=== PATIENT | female | born 2000 | race Caucasian/White ===

== ENCOUNTER 2019-07-29 12:17 | Emergency (ER) | payer BC ==
[~2019-07-29] VITALS: Ht 172.7 cm; Wt 81.2 kg
[2019-07-29 12:27] VITALS: BP 127/79; Ht 172.7 cm; Wt 81.2 kg
== END 2019-07-29 15:00 | disposition home or self-care (01) ==
LOC: ED 12:17
DX: J20.9 Acute bronchitis, unspecified (principal)
CPT/HCPCS: J7613; J7644